=== PATIENT | female | born 1980 ===

== ENCOUNTER 2024-11-28 23:43 | Emergency (ER) | payer OTHER ==
[~2024-11-28] VITALS: Ht 160 cm; Wt 91.2 kg
[2024-11-29] MEDS: ONDANSETRON HCL INJ 2MG/ML 2ML 2 MG/ML VIAL IV STA ×2 (03:44→03:46)
[2024-11-29] MEDS: KETOROLAC TROMETHAMINE 30 MG/ML VIAL IV STA ×2 (03:45)
[2024-11-29 04:14] VITALS: PULSE 85; RESP 18; TEMP 99.8
[2024-11-29] MEDS: CEFTRIAXONE 1 GM VIAL IM ONE (05:12)
[2024-11-29 05:20] VITALS: BP 125/60; O2SAT 97
== END 2024-11-29 05:23 | disposition home or self-care (01) ==
LOC: FSED 11-29 00:02
DX: R10.31 Right lower quadrant pain (principal); N12 Tubulo-interstitial nephritis, not specified as acute or chronic; N39.0 Urinary tract infection, site not specified; M32.9 Systemic lupus erythematosus, unspecified; E66.9 Obesity, unspecified; F17.210 Nicotine dependence, cigarettes, uncomplicated
CPT/HCPCS: 74176; 76700; 81003; 81025; 99284; J0696; J1885; J2405